=== PATIENT | female | born 1975 | race Caucasian/White ===

== ENCOUNTER 2023-10-22 13:55 | Emergency (ER) | payer OTHER, SELFPAY ==
[2023-10-22 14:03] VITALS: BP 120/62
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
== END 2023-10-22 15:09 | disposition home or self-care (01) ==
LOC: EMR 13:55
PROVIDERS: EMERGENCY PHYSICIAN Emergency Medicine
DX: M54.2 Cervicalgia (principal); M54.9 Dorsalgia, unspecified; M25.562 Pain in left knee; V49.40XA Driver injured in collision with unspecified motor vehicles in traffic accident, initial encounter; Y92.410 Unspecified street and highway as the place of occurrence of the external cause; G35 Multiple sclerosis
CPT/HCPCS: 99282